=== PATIENT | male | born 1980 | race American Indian/Alaskan Native ===

== ENCOUNTER 2018-03-02 00:09 | Emergency (ER) | payer SELFPAY ==
[2018-03-02 00:24] VITALS: BP 129/79
[2018-03-02] MEDS ORDERED: MOTRIN ONE (02:52)
[2018-03-02] MEDS ORDERED: MOTRIN PO ONE (02:53)
--- NOTE | 2018-03-02 04:05 | Emergency Department Report ---
- General Chief complaint: Skin/Abscess/Foreign Body Stated complaint: HAND PAIN Time Seen by Provider: 03/02/18 03:34 Source: patient Mode of arrival: Ambulatory Limitations: No Limitations - History of Present Illness Initial comments: 37-year-old male past medical history none presents with complaint of swelling to right distal fourth digit around fingernail since yesterday. No direct injury sustained by palpation. Denies fevers or chills. Visible paronychia right distal ring finger nailbed. MD complaint: abscess/boil Onset/Timin -: days(s) Location: R hand Severity: mild Severity scale (0 -10): 4 Quality: aching Consistency: constant Improves with: none Worsens with: none Context: none Associated symptoms: denies other symptoms Treatments Prior to Arrival: none - Related Data Previous Rx's Medication Instructions Recorded Last Taken Type Ibuprofen [Motrin] 800 mg PO Q8HR PRN #30 tablet 10/16/16 Unknown Rx Cephalexin [Keflex] 500 mg PO BID #10 capsule 03/02/18 Unknown Rx Ibuprofen [Motrin] 800 mg PO Q8HR PRN #20 tablet 03/02/18 Unknown Rx Sulfamethoxazole/Trimethoprim 1 each PO BID #10 tablet 03/02/18 Unknown Rx [Bactrim DS TAB] Allergies Allergy/AdvReac Type Severity Reaction Status Date / Time No Known Allergies Allergy Verified 10/16/16 02:09 Abscess Boil [facility] Chief Complaint: Skin/Abscess/Foreign Body Stated Complaint: HAND PAIN Time Seen by Provider: 03/02/18 03:34 Home Medications: Previous Rx's Medication Instructions Recorded Last Taken Type Ibuprofen [Motrin] 800 mg PO Q8HR PRN #30 tablet 10/16/16 Unknown Rx Cephalexin [Keflex] 500 mg PO BID #10 capsule 03/02/18 Unknown Rx Ibuprofen [Motrin] 800 mg PO Q8HR PRN #20 tablet 03/02/18 Unknown Rx Sulfamethoxazole/Trimethoprim 1 each PO BID #10 tablet 03/02/18 Unknown Rx [Bactrim DS TAB] Allergies/Adverse Reactions: Allergies Allergy/AdvReac Type Severity Reaction Status Date / Time No Known Allergies Allergy Verified 10/16/16 02:09 ED Review of Systems ROS: Stated complaint: HAND PAIN Other details as noted in HPI Constitutional: denies: chills, fever Eyes: denies: eye pain, eye discharge, vision change ENT: denies: ear pain, throat pain Respiratory: denies: cough, shortness of breath, wheezing Cardiovascular: denies: chest pain, palpitations Endocrine: no symptoms reported Gastrointestinal: denies: abdominal pain, nausea, diarrhea Genitourinary: denies: urgency, dysuria Musculoskeletal: denies: back pain, joint swelling, arthralgia Skin: denies: rash, lesions Neurological: denies: headache, weakness, paresthesias Psychiatric: denies: anxiety, depression Hematological/Lymphatic: denies: easy bleeding, easy bruising ED Past Medical Hx - Past Medical History Previous Medical History?: No - Surgical History Past Surgical History?: Yes Hx Appendectomy: Yes - Social History Smoking Status: Current Every Day Smoker Substance Use Type: None - Medications Home Medications: Home Medications Medication Instructions Recorded Confirmed Last Taken Type Ibuprofen [Motrin] 800 mg PO Q8HR PRN #30 tablet 10/16/16 Unknown Rx Cephalexin [Keflex] 500 mg PO BID #10 capsule 03/02/18 Unknown Rx Ibuprofen [Motrin] 800 mg PO Q8HR PRN #20 tablet 03/02/18 Unknown Rx Sulfamethoxazole/Trimethoprim 1 each PO BID #10 tablet 03/02/18 Unknown Rx [Bactrim DS TAB] ED Physical Exam - General Limitations: No Limitations General appearance: alert, in no apparent distress - Head Head exam: Present: atraumatic, normocephalic - Eye Eye exam: Present: normal appearance, PERRL, EOMI - ENT ENT exam: Present: mucous membranes moist - Neck Neck exam: Present: normal inspection - Respiratory Respiratory exam: Present: normal lung sounds bilaterally. Absent: respiratory distress - Cardiovascular Cardiovascular Exam: Present: regular rate, normal rhythm. Absent: systolic murmur, diastolic murmur, rubs, gallop - GI/Abdominal GI/Abdominal exam: Present: soft, normal bowel sounds - Rectal Rectal exam: Present: deferred - Extremities Exam Extremities exam: Present: normal inspection - Expanded Upper Extremity Exam Right Forearm Wrist exam: Present: normal inspection, full ROM Hand Wrist exam: Present: full ROM (range of motion all fingers right hand and) , swelling Hand L/R Back: 1 - Paronychia here. No clinical felon on exam Neuro motor exam: Present: wrist extension intact, thumb opposition intact, thumb IP flexion intact Neurosensory exam: Present: radial nerve intact, ulnar nerve intact, median nerve intact Vascular: Present: normal capillary refill - Back Exam Back exam: Present: normal inspection - Neurological Exam Neurological exam: Present: alert, oriented X3, CN II-XII intact, normal gait - Psychiatric Psychiatric exam: Present: normal affect, normal mood - Skin Skin exam: Present: warm, dry, intact, normal color. Absent: rash ED Course Vital Signs 03/02/18 00:20 Temperature 99.1 F Pulse Rate 76 Respiratory 18 Rate Blood Pressure 129/79 O2 Sat by Pulse 100 Oximetry - I & D Right Distal Finger Type of Procedure: Simple Site: right distal ring finger near nail edge Blade Size: 11 I & D Procedure: betadine prep Progress: 1 mL of lidocaine placed in area. Good local anesthesia. Single stab incision made parallel to the nail bed edge. Moderate amount of purulent drainage. Significant decompression of paronychia achieved. Minimal bleeding. Wrap of gauze afterward. ED Medical Decision Making - Medical Decision Making A/P: Right distal ring finger paronychia 1-successful incision and drainage, significant decompression achieved 2-Motrin 800 when necessary 3-Bactrim and Keflex twice a day 5 days 4- advised patient to return to the ED if swelling reaccumulate or if he experiences erythema and swelling at distal tuft or the rest of his finger. Range of motion right finger clinically intact Critical care attestation.: If time is entered above; I have spent that time in minutes in the direct care of this critically ill patient, excluding procedure time. ED Disposition Clinical Impression: Encounter for incision and drainage procedure, Paronychia of right ring finger Disposition: TO HOME OR SELFCARE Is pt being admited?: No Does the pt Need Aspirin: No Condition: Stable Instructions: Paronychia (ED), Abscess Incision and Drainage (ED), Acute Wound Care (ED) Prescriptions: Cephalexin [Keflex] 500 mg PO BID #10 capsule Ibuprofen [Motrin] 800 mg PO Q8HR PRN #20 tablet PRN Reason: Pain Sulfamethoxazole/Trimethoprim [Bactrim DS TAB] 1 each PO BID #10 tablet Referrals: ANITA HEATH MD [Primary Care Provider] - 3-5 Days [facility] [Provider Group] - 3-5 Days [facility] [Outside] - 3-5 Days Forms: Work/School Release Form(ED) Time of Disposition: 04:26
== END 2018-03-02 04:30 | disposition home or self-care (01) ==
LOC: ED 00:09
DX: L03.011 Cellulitis of right finger (principal); F17.200 Nicotine dependence, unspecified, uncomplicated; Z90.49 Acquired absence of other specified parts of digestive tract; Z79.899 Other long term (current) drug therapy

== ENCOUNTER 2018-07-13 16:44 | Emergency (ER) | payer SELFPAY ==
[2018-07-13] MEDS ORDERED: MOTRIN PO ONE (23:58)
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
[2018-07-14 02:20] VITALS: BP 111/65
== END 2018-07-14 02:19 | disposition home or self-care (01) ==
LOC: ED 16:44
DX: S39.012A Strain of muscle, fascia and tendon of lower back, initial encounter (principal); S16.1XXA Strain of muscle, fascia and tendon at neck level, initial encounter; F17.200 Nicotine dependence, unspecified, uncomplicated; Z90.89 Acquired absence of other organs; Y04.0XXA Assault by unarmed brawl or fight, initial encounter; Y93.89 Activity, other specified; Y92.69 Other specified industrial and construction area as the place of occurrence of the external cause; Y99.9 Unspecified external cause status
CPT/HCPCS: 70360; 72100; 99283